=== PATIENT | female | born 1980 | race Caucasian/White ===

== ENCOUNTER 2022-09-02 21:36 | Emergency (ER) | payer SELFPAY ==
[2022-09-02 21:46] VITALS: BP 140/100; PULSE 100; RESP 18; TEMP 36.6; O2SAT 98; BMI 24.0
--- NOTE | 2022-09-02 22:19 | [facility].EDANIB ---
Discharge Plan Disposition Patient Disposition: Home, Self-Care Prescriptions Prescriptions: New amoxicillin-pot clavulanate [Augmentin] 500-125 mg tablet 1 tab PO BID Qty: 20 0RF Clinical Impressions Clinical Impression: Dog bite, Hand laceration Instructions Patient Instructions: Animal Bites, DI for Laceration Repair Discharge ED Provider: Lloyd (ELIZABETH)Pancho Animal Bite HPI General Chief Complaint: Animal Bite Stated Complaint: AO 09/02 Bite by dog L hand Time Seen by Provider: 09/02/22 22:00 Mode of Arrival: Ambulatory Source of Information: Patient and Medical Record Limitations: No Limitations Description of Symptoms (Recalled from ER Triage Doc. by RN): Pt states that roughly 30 minutes ago she was cooking dinner when her dogs became rowdy so she was taking them outside whenever the dogs began to fight. One of the dogs tooth got lodged in the patients left hand in the fold between her left pinky finger and left ring finger giving her a 1 laceration. History of Present Illness HPI narrative: dog bite lt hand with 1 cm lac dorsum of lt hand tween 4th and fifth digit - known animals - MD complaint: animal bite Onset (ago): hour(s) Animal: dog Description of animal: household pet and immunizations UTD Mechanism: bite Left: hand Context: other (food scent on hands ) Related Data Patient tetanus UTD: No Previous Rx's Medication Instructions Recorded amoxicillin 500 mg-potassium 1 tab PO BID #20 tabs 09/02/22 clavulanate 125 mg tablet (Augmentin) Allergies Allergy/AdvReac Type Severity Reaction Status Date / Time No Known Allergies Allergy Verified 09/02/22 21:51 [facility] Disclaimer: The information contained in this section may have been updated after the patient was seen, as this information can be updated by other users. Social History Smoking Status: Current every day smoker alcohol intake: never current occupational status: employed Travel in the last 8 weeks: None ROS Obtained: Yes All systems reviewed & no additional complaints except as documented Physical Exam General General appearance: alert Head Head exam: normocephalic Eye Eye exam: Present PERRL and EOMI ENT ENT exam: Present mucous membranes moist Neck Neck exam: Present trachea midline Respiratory Respiratory exam: Absent respiratory distress Cardiovascular Cardiovascular exam: Present regular rate Extremities Exam Extremities exam: Present full ROM Neurological Exam Neurological exam: Present alert, oriented X3 and CN II-XII intact Psychiatric Psychiatric exam: Present normal affect Skin Skin exam: Present other (1 cm lac lt hand with from and no fb and neurovascular ok - jt and tendon ok ); Absent rash Medical Decision Making Medical Records Medical records reviewed: Yes I reviewed the patient's medical records. Joshua Inquiry Pt receiving controlled substance: No Vital Signs: 09/02/22 21:46 Temperature 97.9 F Temperature Source Oral Pulse Rate [Apical] 100 H Respiratory Rate 18 Blood Pressure [Right Arm] 140/100 H Blood Pressure Mean [Right Arm] 113 Blood Pressure Source [Right Arm] Automatic Cuff Blood Pressure Position [Right Arm] Sitting 02 Sat by Pulse Oximetry 98 Oxygen Delivery Method Room Air Lab Data Lab results reviewed: Yes I reviewed the patient's lab results. Orders (Tests/Meds): ED MEDICATIONS Discontinued Medications Generic Name Dose Route Start Last Admin Trade Name Freq PRN Reason Stop Dose Admin Acetaminophen/Codeine Phosphate 1 packet 09/02/22 22:07 09/02/22 22:07 Acetaminophen 300mg W/Codeine 30mg Take Home Pack (6) PO 09/02/22 22:08 1 packet ONCE ONE Administration Amoxicillin/Clavulanate Potassium 1 each 09/02/22 22:07 09/02/22 22:09 Amoxicillin/Pot Clavulan 500mg Tablet PO 09/02/22 22:08 1 each ONCE ONE Administration Tetanus/Diphtheria Toxoids 0.5 ml 09/02/22 21:59 09/02/22 22:02 Tetanus-Diphth Toxoid,
[2022-09-02 22:26] VITALS: BP 136/97; PULSE 78; RESP 18; TEMP 36.6; O2SAT 99
== END 2022-09-02 22:30 | disposition home or self-care (01) ==
LOC: ER 22:43
PROVIDERS: Emergency Provider Emergency Medicine
DX: S61.412A Laceration without foreign body of left hand, initial encounter (principal); W54.0XXA Bitten by dog, initial encounter
CPT/HCPCS: 12041; 90714; 96372; 99283; 99284